=== PATIENT | female | born 1970 | race Caucasian/White ===

== ENCOUNTER 2017-04-30 23:23 | Emergency (ER) | payer SELFPAY ==
[~2017-04-30] VITALS: Ht 162.6 cm; Wt 69.8 kg
[~2017-04-30 23:23] MED LIST: CLB/200 PO; DULO60CA44 PO; EZET10TA63 PO; HYDR-3983 PO; HYDR25TA5 PO; ONDA4TAB7 SL; PHEN37.585 PO
[2017-04-30 23:29] VITALS: Ht 162.6 cm; Wt 69.8 kg
[2017-04-30] MEDS ORDERED: KETOROLAC TROMETHAMINE 30 MG/ML VIAL IV STA (23:55)
[2017-05-01] MEDS ORDERED: SODIUM CHLORIDE 0.9% 1000ML 1,000 ML IV ONE
[2017-05-01] MEDS ORDERED: ALBUT/IPRATROP 3MG/0.5MG NEB 3 ML VIAL INH ONE
[2017-05-01] MEDS ORDERED: ACETAMINOPHEN IV 1,000 MG in EMPTY BAG 0 ML IV ONE
[2017-05-01] MEDS ORDERED: RIZA10TA18 PO (00:13)
[2017-05-01] MEDS ORDERED: ALPR-411 PO (00:13)
[2017-05-01] MEDS ORDERED: ACETAMINOPHEN IV 100 ML IV STA (00:32)
[2017-05-01 00:55] LABS: INFLUENZA B ANTIGEN Neg for Influ B (NEG)
[2017-05-01 00:59] LABS: BASO % 0.2 %; BASO ABS # 0.03 K/uL (0-0.2); EOS % 0.3 %; EOS ABS # 0.04 K/uL (0-0.5); HEMATOCRIT 39.5 % (37-47); HEMOGLOBIN 13.9 g/dL (12.0-16.0); IG# 0.08 K/uL (0.00-0.02); LYMPH % 10.7 %; LYMPH ABS # 1.38 K/uL (1.2-3.4); MEAN CELL VOLUME 86.1 fL (80-100); MEAN CORPUSCULAR HEMOGLOBIN 30.3 pg (25-34); MEAN CORPUSCULAR HGB CONC 35.2 g/dl (32-36); MEAN PLATELET VOLUME 10.2 fL (7.4-10.4); MONO % 8.2 %; MONO ABS # 1.06 K/uL (0.11-0.59); NEUT ABS # 10.31 K/uL (1.4-6.5); PLATELET COUNT 303 K/uL (130-400); RED CELL DISTRIBUTION WIDTH CV 12.7 % (11.5-14.5); RED CELL DISTRIBUTION WIDTH SD 40.3 fL (36.4-46.3)
[2017-05-01 01:18] LABS: ALBUMIN 3.3 gm/dl (3.4-5.0); CALCIUM 8.3 mg/dl (8.5-10.1); CREATININE 0.75 mg/dl (0.60-1.20); POTASSIUM 3.1 mmol/L (3.5-5.1)
[2017-05-01 01:21] LABS: TOTAL PROTEIN 7.2 gm/dl (6.4-8.2)
[2017-05-01] MEDS ORDERED: PRED20TA2 PO (01:49)
[2017-05-01 02:23] VITALS: BP 135/85; PULSE 97; TEMP 37; O2SAT 98
--- NOTE | 2017-05-01 07:11 | DIAGNOSTIC IMAGING REPORT ---
CHEST 2 VIEWS ROUTINE HISTORY: cough fever flu like COMPARISON: None. FINDINGS: The lungs are clear. Cardiac silhouette is normal in size. No pleural effusions. No pneumothorax. IMPRESSION: No acute process. Electronically signed by: Jaron Dunlap M.D. 05/01/2017 7:10 AM Dictated Date/Time: 05/01/2017 7:09 AM
--- NOTE | 2017-05-01 23:20 | EMERGENCY ROOM VISIT NOTE ---
History First contact with patient: 23:51 Chief Complaint: SHORTNESS OF BREATH Stated Complaint: SOB Nursing Triage Summary: sob went to pcp,placed on tamiflu History of Present Illness The patient is a 46 year old female who presents to the Emergency Room with complaints of shortness of breath and cough symptoms for the past 2-3 days. The patient contact her primary care physician today and was started on Tamiflu. She did not actually see the PCP today. The patient states that she has been running a fever. She has been taking prednisone, which has been helping. She does not have abdominal pain. She rates her current discomfort a 4/10. Review of Systems More than 10 systems were reviewed and otherwise negative with the exception of history of present illness. Past Medical/Surgical History No pertinent chronic medical disease Family History No pertinent family history Social History Smoking Status: Former Smoker Alcohol Use: none Drug Use: none Housing Status: lives with family Current/Historical Medications Scheduled Alprazolam (Xanax), 0.5 MG PO DIRECTED Celecoxib (CeleBREX), 200 MG PO DAILY Duloxetine Hcl (Cymbalta), 60 MG PO DAILY Hydrochlorothiazide (Hydrochlorothiazide), 25 MG PO DAILY Prednisone (Prednisone Tab), 2 TAB PO DAILY Scheduled PRN Rizatriptan Benzoate (Maxalt), 10 MG PO DIRECTED PRN for headache Physical Exam Vital Signs Date Time Temp Pulse Resp B/P (MAP) Pulse Ox O2 Delivery O2 Flow Rate FiO2 05/01/17 02:23 37.0 97 18 135/85 98 05/01/17 01:55 97 18 135/85 98 Room Air 05/01/17 00:28 Room Air 04/30/17 23:29 37.0 104 20 149/94 97 Room Air Physical Exam VITALS: Vitals are noted on the nurse's note and reviewed by myself. Vital signs stable. GENERAL: Well-developed, well-nourished, white female, who is in no acute distress and resting comfortably. Patient is cooperative with the examination. HEAD: Normocephalic atraumatic. EARS: External ear normal. External auditory canals clear, tympanic membranes pearly villeda without erythema or effusion bilaterally. EYES: Pupils equal round and reactive to light and accommodation. Conjunctivae without injection, sclerae without icterus. Extraocular movements intact. NOSE: Patent, turbinates without inflammation or discharge. MOUTH: Mucous membranes moist. Tonsils are not enlarged. Pharynx without erythema, blood, or exudate. Uvula midline. Airway patent. NECK: Supple without nuchal rigidity. No lymphadenopathy. No thyromegaly. Cervical spine is nontender. HEART: Regular rate and rhythm without murmurs gallops or rubs. LUNGS: Clear to auscultation bilaterally without wheezes, rales or rhonchi. No retractions or accessory muscle use. MUSCULOSKELETAL: No muscle atrophy, erythema, or edema noted. Full range of motion without joint tenderness in all extremities. Medical Decision & Procedures ER Provider Diagnostic Interpretation: CHEST 2 VIEWS ROUTINE HISTORY: cough fever flu like COMPARISON: None. FINDINGS: The lungs are clear. Cardiac silhouette is normal in size. No pleural effusions. No pneumothorax. IMPRESSION: No acute process. Laboratory Results 05/01/17 00:10 Red Blood Count 4.59, Mean Corpuscular Volume 86.1, Mean Corpuscular Hemoglobin 30.3, Mean Corpuscular Hemoglobin Concent 35.2, Mean Platelet Volume 10.2, Neutrophils (%) (Auto) 80.0, Lymphocytes (%) (Auto) 10.7, Monocytes (%) (Auto) 8.2, Eosinophils (%) (Auto) 0.3, Basophils (%) (Auto) 0.2, Neutrophils # (Auto) 10.31, Lymphocytes # (Auto) 1.38, Monocytes # (Auto) 1.06, Eosinophils # (Auto) 0.04, Basophils # (Auto) 0.03 05/01/17 00:10 Test 05/01/17 00:10 White Blood Count 12.90 K/uL (4.8-10.8) Red Blood Count 4.59 M/uL (4.2-5.4) Hemoglobin 13.9 g/dL (12.0-16.0) Hematocrit 39.5 % (37-47) Mean Corpuscular Volume 86.1 fL (80-100) Mean Corpuscular Hemoglobin 30.3 pg (25-34) Mean Corpuscular Hemoglobin Concent 35.2 g/dl (32-36) Platelet Count 303 K/uL (130-400) Mean Platelet Volume 10.2 fL (7.4-10.4) Neutrophils (%) (Auto) 80.0 % Lymphocytes (%) (Auto) 10.7 % Monocytes (%) (Auto) 8.2 % Eosinophils (%) (Auto) 0.3 % Basophils (%) (Auto) 0.2 % Neutrophils # (Auto) 10.31 K/uL (1.4-6.5) Lymphocytes # (Auto) 1.38 K/uL (1.2-3.4) Monocytes # (Auto) 1.06 K/uL (0.11-0.59) Eosinophils # (Auto) 0.04 K/uL (0-0.5) Basophils # (Auto) 0.03 K/uL (0-0.2) RDW Standard Deviation 40.3 fL (36.4-46.3) RDW Coefficient of Variation 12.7 % (11.5-14.5) Immature Granulocyte % (Auto) 0.6 % Immature Granulocyte # (Auto) 0.08 K/uL (0.00-0.02) Anion Gap 8.0 mmol/L (3-11) Est Creatinine Clear Calc Drug Dose 88.9 ml/min Estimated GFR () 110.0 Estimated GFR (Non- 94.9 BUN/Creatinine Ratio 13.9 (10-20) Calcium Level 8.3 mg/dl (8.5-10.1) Total Bilirubin 0.4 mg/dl (0.2-1) Aspartate Amino Transf (AST/SGOT) 7 U/L (15-37) Alanine Aminotransferase (ALT/SGPT) 18 U/L (12-78) Alkaline Phosphatase 80 U/L (45-117) Total Protein 7.2 gm/dl (6.4-8.2) Albumin 3.3 gm/dl (3.4-5.0) Globulin 3.9 gm/dl (2.5-4.0) Albumin/Globulin Ratio 0.8 (0.9-2) Influenza Type A Antigen Neg for Influ A (NEG) Influenza Type B Antigen Neg for Influ B (NEG) Medications Administered Medications (Trade) Dose Ordered Sig/Tre Route Start Time Stop Time Status Last Admin Dose Admin Sodium Chloride 1,000 ml @ 999 mls/hr Q1H1M ONCE IV 05/01/17 00:00 05/01/17 01:00 DC 05/01/17 00:00 999 MLS/HR Ketorolac Tromethamine (Toradol Inj) 30 mg NOW STAT IV 04/30/17 23:55 05/01/17 00:00 DC 04/30/17 23:55 30 MG Albuterol/ Ipratropium (Duoneb) 3 ml NOW ONCE INH 05/01/17 00:00 05/01/17 00:01 DC 05/01/17 00:00 3 ML Acetaminophen 100 ml @ 400 mls/hr NOW STAT IV 05/01/17 00:32 05/01/17 00:46 DC 05/01/17 00:32 400 MLS/HR ED Course Physical exam and history were performed. Nursing notes, EMR, and Medication List were personally reviewed. Patient appears to have cough and flulike symptoms for the past 2-3 days. The patient does not appear toxic on examination. IV access was established and labs were obtained. The patient was hydrated and medicated as above. She was given a DuoNeb, IV Toradol, and IV Tylenol. The patient's chest x-ray was performed and does not show obvious acute process per my radiologist interpretation. The patient's blood work is as above and was reviewed. She has a very slightly elevated white blood count, which is felt to be from her recent prednisone use. She is not have a significant anemia or gross electrolyte imbalance. Influenza swabbing was negative. On reevaluation the patient specifically better after treatment. She was able to rest very comfortably in her ER bed. I did have a lengthy discussion with the patient as her symptoms do seem flulike in nature. She will be given a short course of steroids and asked to follow with her PCP this week for further care. She was otherwise invited back to the ER with any new, worsening, or concerning symptoms. The chart was completed utilizing [email or web address] Speech Voice Recognition Software. Grammatical errors, random word insertions, pronoun errors, and incomplete sentences are an occasional consequence of this system due to software limitations, ambient noise, and hardware issues. Any formal questions or concerns about the content, text, or information contained within the body of this dictation should be directly addressed to the provider for clarification. . Medical Decision Differential diagnosis: Etiologies such as viral syndrome, otitis, pharyngitis, pneumonia, influenza, meningitis, urinary tract infection, sepsis, bacteremia, as well as others were entertained. Impression Primary Impression: Influenza-like illness Departure Information Dispostion Home / Self-Care Condition GOOD Prescriptions Prednisone (Prednisone Tab) 20 Mg Tab 2 TAB PO DAILY for 5 Days, #10 TAB Prov: Dillon Jansen PA-C 05/01/17 Forms HOME CARE DOCUMENTATION FORM, IMPORTANT VISIT INFORMATION Patient Instructions My [facility] Additional Instructions You were seen and evaluated today on an emergency basis only. This is not a substitute for, or an effort to provide, complete comprehensive medical care. It is not possible to recognize and treat all injuries or illnesses in a single emergency department visit. For this reason it is recommended that you followup with your primary care physician this week for recheck of your symptoms. Take prednisone as prescribed You are welcome to return to the emergency department anytime with new, worsening, or concerning symptoms.
== END 2017-05-01 02:24 | disposition home or self-care (01) ==
LOC: C.EDB 23:26 → C.EDA 05-01 02:24
DX: R05 Cough (principal); Z87.891 Personal history of nicotine dependence